=== PATIENT | male | born 1960 | race Caucasian/White ===

== ENCOUNTER 2020-06-29 09:48 | Outpatient (CLI) | payer BC, SELFPAY ==
[2020-06-29 10:26] LABS: Basophils Percent Auto 1.1 % (0.2-1.2); Eosinophils Absolute Auto 0.1 K/mm3 (0-0.3); Eosinophils Percent Auto 3.2 % (0-4.4); Hematocrit 41.4 % (42.0-52.0); Hemoglobin 14.2 g/dL (14.0-18.0); Immature Granulocyte Absolute 0.01 K/mm3 (0.00-0.031); Immature Granulocyte Percent A 0.3 % (0-0.5); Lymphocytes Absolute Auto 1.21 K/mm3 (0.9-3.2); Lymphocytes Percent Auto 32.5 % (18.3-44.2); Mean Corpuscular HGB Conc 34.3 g/dl (32-36); Mean Corpuscular Hemoglobin 29.9 pg (26-34); Mean Corpuscular Volume 87.2 fl (80-100); Mean Platelet Volume 9.3 fl (7.4-10.4); Monocytes Absolute Auto 0.4 K/mm3 (0.1-0.6); Monocytes Percent Auto 9.4 % (2.6-8.5); Neutrophils Percent Auto 53.5 % (45.5-73.1); Platelet Count Result 194 k/mm3 (150-375); Red Blood Count 4.75 M/mm3 (4.6-6.20); Red Cell Distribution Width 12.7 % (11.5-14.5); White Blood Count 3.7 K/mm3 (4.5-10.0)
[2020-06-29 10:31] LABS: Alanine Aminotransferase 31 U/L (4-50); Albumin Level 4.4 g/dL (3.5-5.1); Alkaline Phosphatase 58 U/L (38-126); Anion Gap 8 mmol/L (8-16); Aspartate Amino Transferase 35 U/L (17-59); Bilirubin,Total 0.5 mg/dL (0.2-1.3); Blood Urea Nitrogen 15 mg/dL (9-20); Calcium 9.1 mg/dL (8.4-10.2); Carbon Dioxide 25 mmol/L (22-30); Chloride 105 mmol/L (98-107); Cholesterol 179 mg/dL (0-200); Estimated Glomerular Filt Rate > 60; Glucose 93 mg/dL (75-110); HDL Direct 50 mg/dL; Potassium 4.3 mmol/L (3.4-5.0); Sodium 138 mmol/L (137-145); Triglycerides 75 mg/dL (<150)
[2020-06-29 10:42] LABS: LDL Cholesterol Direct 113 mg/dL
[2020-06-29 10:51] LABS: Creatinine Urine 63.7 mg/dL
[2020-06-29 11:07] LABS: Free T4 Free Thyroxine 0.81 ng/mL (0.78-2.19); Vitamin D 25 Hydroxy 92.7 ng/mL
[2020-06-29 11:08] LABS: MALB Creatinine Ratio < 9.4 mg/g (0-30); Microalbumin Urine Random < 6.0 mg/L (0-16.7)
[2020-06-29 11:13] LABS: Prostate Specific Antigen 1.6 ng/mL (< OR = 4.0); Total Triiodothyronine (T3) 2.61 NG/ML (0.97-1.69)
[2020-07-03 12:38] LABS: Testosterone Total 528 ng/dL (250-1100)
== END 2020-06-29 09:49 | disposition home or self-care (01) ==
PROVIDERS: PCP Family Medicine; Visit Provider Nurse Practitioner
DX: N52.9 Male erectile dysfunction, unspecified (principal); E55.9 Vitamin D deficiency, unspecified; E29.1 Testicular hypofunction; E78.1 Pure hyperglyceridemia; E66.3 Overweight; I10 Essential (primary) hypertension; R80.9 Proteinuria, unspecified; Z12.5 Encounter for screening for malignant neoplasm of prostate; Z13.6 Encounter for screening for cardiovascular disorders
CPT/HCPCS: 36415; 80053; 80061; 82043; 82306; 84153; 84402; 84403; 84439; 84443; 84480; 85025; G0103

== ENCOUNTER 2020-09-07 15:49 | Emergency (ER) | payer BC, SELFPAY ==
[2020-09-07 15:54] VITALS: BP 132/89; PULSE 81; RESP 12; TEMP 36.7; O2SAT 100
[2020-09-07 15:59] VITALS: BP 132/89; PULSE 81; RESP 12; TEMP 36.7; O2SAT 100
--- NOTE | 2020-09-07 16:21 | ED.EXTPRO ---
HPI - Extremity Problem General Chief complaint: Extremity Problem,Nontraumatic Stated complaint: Lump on elbow, insect bite Source: patient Mode of arrival: ambulatory Limitations: no limitations History of Present Illness HPI Narrative: Patient is here with swelling to left elbow x 2 months. Patient reports mild pain with palpation, slight decreased range of motion. Patient also reports lesion to left chest x 1-2 months. Patient denies taking [id number] medications for relief. Patient denies injury to the elbow. Patient has no significant medical history. MD Complaint: joint swelling Related Data Home Medications Medication Instructions Recorded Confirmed terbinafine HCl mg 09/07/20 Allergies Allergy/AdvReac Type Severity Reaction Status Date / Time No Known Allergies Allergy Mild Verified 11/11/09 10:59 Review of Systems Review of Systems: Narrative: CONSTITUTIONAL: Denies fever, chills, or sweats. EYES: Denies visual changes, redness, or discharge. ENT: Denies rhinorrhea, congestion, sore throat, or otalgia. CARDIOVASCULAR: Denies chest pain, palpitations, or edema. RESPIRATORY: Denies cough or dyspnea. GASTROINTESTINAL: Denies abdominal pain, nausea, vomiting, or diarrhea. GENITOURINARY: Denies dysuria or hematuria. SKIN: Swelling to right elbow, lesion to left chest MUSCULOSKELETAL: Denies back pain, joint pain, or myalgia. NEUROLOGIC: Denies headache, numbness, dizziness, or weakness. PSYCHIATRIC: Denies anxiety or depression. PMFSH Surgical History Surgical History (Updated 09/07/20 @ 16:50 by STEPHANIE Barnes) No significant past surgical history Family History Family History (Updated 09/07/20 @ 16:50 by STEPHANIE Barnes) Other No significant family history Social History Social History (Updated 09/07/20 @ 16:50 by STEPHANIE Barnes) Smoking status: Never smoker Alcohol intake: never Substance use: never Living arrangements: with family Occupation/Education: occupation Gender identity (if verbalized by the patient): Male Comments At the time of signature, I have reviewed and agree with nursing past medical, surgical, social, and family history unless otherwise noted. Please see nursing chart for further information. There is no relevant family history pertinent to the presenting complaint. Exam Narrative: Exam Narrative: GENERAL: Well-appearing, well-nourished, and in no acute distress. HEAD: Normocephalic, atraumatic. EYES: EOMI. No redness or drainage. Conjunctiva are normal. ENT: Mucous membranes pink and moist. CHEST: No respiratory distress. HEART: Regular rate and rhythm. EXTREMITIES: Normal range of motion. Edema at left olecranon, no erythema or warmth noted SKIN: Approximate 1 cm circular lesion to left chest, no tenderness with palpation NEURO: No focal deficits. Alert and oriented x3. Gait steady. PSYCH: Normal affect. No signs of depression or anxiety. Course Vital Signs Vital signs: Vital Signs Temperature 36.7 C 09/07/20 15:54 Pulse Rate 81 09/07/20 15:54 Respiratory Rate 12 09/07/20 15:54 Blood Pressure 132/89 09/07/20 15:54 Pulse Oximetry 100 09/07/20 15:54 Temperature 36.7 C 09/07/20 15:59 Pulse Rate 81 09/07/20 15:59 Respiratory Rate 12 09/07/20 15:59 Blood Pressure 132/89 09/07/20 15:59 Pulse Oximetry 100 09/07/20 15:59 Reviewed. Patient has been instructed to follow-up with his PCP regarding his blood pressure. MDM - Extremity (Nontraumatic) MDM Narrative Medical decision making narrative: Patient afebrile and nontoxic, vital signs stable. Patient appears to have bursitis of left elbow, no erythema or warmth noted. Patient also has lesion to left chest, discussed follow-up with orthopedics as well as dermatology. Patient reports having appointment on 09/[address] Francois. Patient encouraged to keep appointment with Dr. Francois. Patient is aware of red flags in which further martha
== END 2020-09-07 16:27 | disposition home or self-care (01) ==
PROVIDERS: Emergency Provider Nurse Practitioner; PCP Family Medicine
DX: M70.32 Other bursitis of elbow, left elbow (principal); L98.9 Disorder of the skin and subcutaneous tissue, unspecified
CPT/HCPCS: 99212; G0463

== ENCOUNTER 2021-08-03 01:12 | Day surgery (SDC) | payer BC, SELFPAY ==
[2021-07-20 13:04] VITALS: BMI 25.8
[2021-08-03 08:05] VITALS: BP 148/93; PULSE 105; RESP 18; TEMP 36.7; O2SAT 100
[2021-08-03] MEDS: LACTATED RINGERS 1,000 ML 150 ML IV CONT (08:16)
--- NOTE | 2021-08-03 09:03 | PM.HPGS ---
History of Present Illness History of Present Illness Consent: Risks, benefits, and alternatives have been discussed and questions answered. Patient agrees to proceed with procedure. Chief complaint: family hx of colon ca Narrative: Da Hall is a 60 year old male here for first colonoscopy, sister had colon cancer Review of Systems Constitutional: Constitutional: Denies headache(s) and Denies weakness Eyes: Eyes: Denies blurry vision ENT: Reports Normal hearing present, Denies headache(s) and Denies neck pain Cardiovascular: Cardiovascular: Denies chest pain and Denies dyspnea Respiratory: Respiratory: Denies dyspnea Gastrointestinal: Gastrointestinal: Reports no additional gastrointestinal complaints Genitourinary: Genitourinary: Denies dysuria Musculoskeletal: Musculoskeletal: Denies neck pain Integumentary/Breasts: Skin/Breast: Denies dry skin Neurologic: Reports Normal hearing present, Denies headache(s) and Denies weakness Psychiatric: Psychiatric: Denies anxiety Endocrine: Endocrine: Denies change in body appearance Hematologic/Lymphatic: Hematologic/Lymphatic: Denies easy bleeding Allergic/Immunologic: Allergic/Immunologic: Denies urticaria PMFSH Past Medical History Medical History (Updated 08/03/21 @ 09:03 by Sanjeev Lemon MD) Family history of colon cancer Surgical History Surgical History (Updated 09/07/20 @ 16:50 by Joyce Garcia, [employer] DOC FELLOWSHIP) No significant past surgical history Family History Family History (Updated 09/07/20 @ 16:50 by Joyce Garcia, [employer]LLOWSHIP) Other No significant family history Social History Social History (Updated 09/07/20 @ 16:50 by Joyce Garcia, [employer]LLOWSHIP) Smoking status: Never smoker Alcohol intake: current Alcohol use details: a few drinks a month Substance use: never Substance use type: does not use Living arrangements: with family Gender identity (if verbalized by the patient): Male Spiritual care concerns: No Meds Home Medications and Allergies Home Medications Medication Instructions Recorded Confirmed Type No Home Medications 07/20/21 07/20/21 History Allergies Allergy/AdvReac Type Severity Reaction Status Date / Time No Known Allergies Allergy Mild Verified 08/03/21 08:04 Vital Signs Vital Signs - 24 hr 08/03/21 08:05 Temperature 98.1 F Pulse Rate 105 H Respiratory Rate 18 Blood Pressure 148/93 H Pulse Oximetry 100 Oxygen Delivery Room Air Exam Const: General: comfortable and no acute distress HENMT: General nose exam: Normal nares present Eyes: General: appearance normal, both eyes and all related structures Neck: Neck: no JVD Resp: Auscultation: clear to auscultation bilaterally Cardio: Rate: regular rate Rhythm: regular rhythm GI: Inspection: non-distended GI Palp: Yes Soft to palpation Skin: General skin exam: normal color Neuro: General: gait normal Speech: normal speech Extrem: General: normal to inspection Psych: Mental Status: mental status grossly normal Assessment and Plan Assessment and plan (1) Family history of colon cancer: Code(s): Z80.0 - Family history of malignant neoplasm of digestive organs Status: Acute Assessment and Plan: colonoscopy
--- NOTE | 2021-08-03 09:10 | P.PNAN_ITS ---
Anes - Initial Pre Proc Eval Procedure: Operation Date: 08/03/21 09:15 Proposed Procedures p Screening Colonoscopy - Sanjeev Lemon MD Date/Time: 08/03/21 09:10 Surgeon: Sanjeev Lemon MD Pre Op Diagnosis: family hx of colon ca Patient Data Age: 60 Gender: M Height: 1.8 m Weight: 80.7 kg Last Vital Signs Temp 98.1 F 08/03/21 08:05 Pulse 105 H 08/03/21 08:05 Resp 18 08/03/21 08:05 BP 148/93 H 08/03/21 08:05 Pulse Ox 100 08/03/21 08:05 O2 Del Method Room Air 08/03/21 08:05 Allergies Allergy/AdvReac Type Severity Reaction Status Date / Time No Known Allergies Allergy Mild Verified 08/03/21 08:04 Home Medications Medication Instructions Recorded Confirmed Type No Home Medications 07/20/21 07/20/21 History Patient hx anesthesia problems: none Family hx anesthesia problems: none Results Review: All pre-operative results and documents have been reviewed as part of the pre-o perative evaluation. [facility] Past Medical History Medical History (Updated 08/03/21 @ 09:03 by Sanjeev Lemon MD) Family history of colon cancer Surgical History Surgical History (Updated 09/07/20 @ 16:50 by Joyce Garcia, HOSPITAL NURSING ASSISTANT) No significant past surgical history Family History Family History (Updated 09/07/20 @ 16:50 by Joyce Garcia, HOSPITAL NURSING ASSISTANT) Other No significant family history Social History Social History (Updated 09/07/20 @ 16:50 by Joyce Garcia, HOSPITAL NURSING ASSISTANT) Smoking status: Never smoker Alcohol intake: current Alcohol use details: a few drinks a month Substance use: never Substance use type: does not use Living arrangements: with family Gender identity (if verbalized by the patient): Male Spiritual care concerns: No Anes - Eval Final PreProcedure Day of Procedure 08/03/21 09:10 Patient weight: overweight Heart: regular rate and rhythm Lungs: clear to auscultation Airway: Mallampati scale class II Neurological: alert and oriented Last oral intake: >/= 8 hours ASA classification: II Emergent: no Anesthetic plan: proceed Anesthesia type and monitoring: general GIVS and standard monitoring Results Review: All pre-operative results and documents have been reviewed as part of the pre- operative evaluation. Informed Consent: The patient's anesthetic plan and its attendant risks and benefits were discussed with the patient/family/POA. Questions were solicited and answers provided to the satisfaction of the patient/family/POA.
[2021-08-03 09:30] VITALS: BP 119/78; PULSE 98; RESP 22; O2SAT 99
[2021-08-03 09:40] VITALS: BP 109/80; PULSE 86; RESP 19; O2SAT 99
[2021-08-03 09:50] VITALS: BP 116/79; PULSE 74; RESP 13; O2SAT 98
== END 2021-08-03 09:55 | disposition home or self-care (01) ==
PROVIDERS: PCP Internal Medicine; Visit Provider Internal Medicine Gastroenterology
PROC: 0DJD8ZZ Inspection of Lower Intestinal Tract, Via Natural or Artificial Opening Endoscopic (ICD-10-PCS; CPT 45378; principal; 2021-08-03 09:15)
DX: Z12.11 Encounter for screening for malignant neoplasm of colon (principal); D12.0 Benign neoplasm of cecum; K64.8 Other hemorrhoids; K63.5 Polyp of colon; K62.1 Rectal polyp; Z80.0 Family history of malignant neoplasm of digestive organs
CPT/HCPCS: 45385; 45380; 88305; J2704; J7120

== ENCOUNTER 2022-04-26 11:19 | Emergency (ER) | payer BC, SELFPAY ==
--- NOTE | 2022-04-26 11:21 | ED.URI ---
HPI - URI/Sore Throat General Chief Complaint: Upper Respiratory Infection Stated Complaint: sinus moving to chest Time Seen by Provider: 04/26/22 11:22 Source: patient and RN notes reviewed History of Present Illness HPI Narrative: Patient is a 61-year-old male who presents to urgent care with complaints of sinus congestion pressure. Patient states resolved slightly with Sudafed however is now ?moving to his chest?. Patient states that he has a slight cough and has been taking Sudafed. Denies any history sinus surgeries. Denies any ill exposures. Denies any fever, nausea or vomiting. No other acute complaints. No acute distress noted. Patient aware of the plan of care. Some parts of this dictation were generated by voice recognition software and may contain typographical and/or grammatical inaccuracies. Related Data Home Medications Medication Instructions Recorded Confirmed lisinopril 5 mg tablet 5 mg PO DAILY 04/26/22 04/26/22 Allergies Allergy/AdvReac Type Severity Reaction Status Date / Time No Known Allergies Allergy Mild Verified 04/26/22 11:43 Review of Systems Review of Systems: CONSTITUTIONAL: Denies fever, chills, or sweats. EYES: Denies visual changes, redness, or discharge. ENT: Reports rhinorrhea, postnasal drainage, congestion CARDIOVASCULAR: Denies chest pain, palpitations, or edema. RESPIRATORY: Reports cough without dyspnea GASTROINTESTINAL: Denies abdominal pain, nausea, vomiting, or diarrhea. GENITOURINARY: Denies dysuria or hematuria. SKIN: Denies rash or itching. MUSCULOSKELETAL: Denies back pain, joint pain, or myalgia. NEUROLOGIC: Denies headache, numbness, or weakness. All other systems reviewed are negative, except as documented in HPI. [facility] Past Medical History Medical History (Updated 04/26/22 @ 11:46 by STEPHANIE Paredes) Family history of colon cancer Surgical History Surgical History (Updated 09/07/20 @ 16:50 by Joyce Garcia, BACKSHOE PERSON) No significant past surgical history Family History Family History (Updated 09/07/20 @ 16:50 by Joyce Garcia, BACKSHOE PERSON) Other No significant family history Social History Social History (Updated 09/07/20 @ 16:50 by Joyce Garcia, BACKSHOE PERSON) Smoking status: Never smoker Alcohol intake: current Alcohol use details: a few drinks a month Substance use: never Substance use type: does not use Living arrangements: with family Occupation/Education: occupation Gender identity (if verbalized by the patient): Male Spiritual care concerns: No Comments At the time of my signature, I reviewed and agree with the nursing past medical, surgical, social, and family history. There is no relevant family history pertinent to the patient complaint. Exam Narrative: GENERAL: This is a well-nourished, well-developed patient, in no apparent distress. HEAD: normocephalic, atraumatic. EYES: PERRL. Sclera clear/white. Vision is grossly intact. EARS: External ears normal, auditory canals clear and without drainage, TMs normal without perforation. Hearing grossly intact. NOSE: External nose normal with no obvious nasal discharge. Mild bilateral erythema nares with clear yellow rhinorrhea THROAT: Mucous membranes moist, posterior pharynx clear. Moderate postnasal drainage NECK: Neck supple, non-tender without lymphadenopathy CARDIOVASCULAR: Regular rate and rhythm RESPIRATORY: Clear to auscultation. Breath sounds equal bilaterally. No wheezes, rales, or rhonchi. SKIN: warm, intact with no suspicious lesions or rash, good texture and turgor. NEURO: awake, alert, and oriented to person, place and time. There were no obvious focal neurologic abnormalities. EXTREMITIES: No clubbing, cyanosis, or edema. Course Course Level of Care: Express Care Visit Vital Signs Vital signs: Vital Signs Temperature 98.1 F 04/26/22 11:25 Pulse Rate 98 04/26/22 11:25 Respiratory Rate 20 04/26/22 11:25 Blood Pressure 121/98 H
[2022-04-26 11:25] VITALS: BP 121/98; PULSE 98; RESP 20; TEMP 36.7; O2SAT 100
== END 2022-04-26 11:48 | disposition home or self-care (01) ==
PROVIDERS: Emergency Provider Nurse Practitioner Family; PCP Internal Medicine
DX: J32.9 Chronic sinusitis, unspecified (principal)
CPT/HCPCS: 99213; G0463